=== PATIENT | female | born 1985 | race Caucasian/White ===

== ENCOUNTER → 2017-06-08 | Outpatient (CLI) | payer OTHER ==
--- NOTE | 2017-06-08 13:58 | MM ---
Reason for exam: clinical finding. History: Family history of breast cancer in 2 maternal aunts at age 60. Indicated problem(s): lump or thickening in the right breast. Physical Findings: Nurse did not find any significant physical abnormalities on exam. MG 3D Diag Mammo W/Cad RINAA Bilateral CC and MLO view(s) were taken. There are scattered fibroglandular densities. There is no discrete abnormality. These results were verbally communicated with the patient and result sheet given to the patient on 06/08/17. ASSESSMENT: Negative, BI-RAD 1 RECOMMENDATION: Clinical management of both breasts. Manage patient on a clinical basis.
== END | disposition home or self-care (01) ==
LOC: RADMAMWWP 12:50
PROVIDERS: ATTEND Internal Medicine
DX: N60.01 Solitary cyst of right breast (principal)
CPT/HCPCS: 77066; G0279

== ENCOUNTER → 2019-07-24 | Outpatient (CLI) | payer OTHER ==
--- NOTE | 2019-07-24 16:06 | US ---
EXAMINATION TYPE: US pelvis complete transvag DATE OF EXAM: 07/24/2019 COMPARISON: NONE CLINICAL HISTORY: N92.1 Excessive and frequent menstruation with irr. Irregular menses TECHNIQUE: Transvaginal (TV) and Transabdominal (TA) . Transabdominal sonographic images of the pel vis were acquired. Transvaginal sonographic images were medically necessary to better assess the fol lowing anatomy: Ovary, endometrium Date of LMP: 07/04/2019, EXAM MEASUREMENTS: Uterus: 8.5 x 5.4 x 4.7 cm Endometrial Stripe: 1.2 cm Right Ovary: 3.3 x 2.1 x 2.5 cm Left Ovary: 2.9 x 1.4 x 2.0 cm 1. Uterus: Anteverted wnl 2. Endometrium: wnl 3. Right Ovary: Complex lesion with peripheral vascular flow = 2.0 x 2.0 x 1.7 cm 4. Left Ovary: follicles seen 5. Bilateral Adnexa: Fluid filled peristalsing bowel 6. Posterior cul-de-sac: free fluid Cervix- Nabothian cysts IMPRESSION: 1. Complex right ovarian lesion measuring 2.0 cm most likely represents an involuting hemorrhagic cys t. Follow-up pelvic ultrasound could be considered and 3 menstrual cycles to ensure resolution. 2. Endometrial thickness is within normal limits in this patient with irregular menstruation. 3. Small amount of free fluid in the bilateral adnexa and posterior cul-de-sac, likely physiologic in nature.
== END | disposition home or self-care (01) ==
LOC: RADUSWWP 15:15
PROVIDERS: ATTEND Internal Medicine
DX: N83.8 Other noninflammatory disorders of ovary, fallopian tube and broad ligament (principal)
CPT/HCPCS: 76830; 76856

== ENCOUNTER → 2019-10-27 | Outpatient (CLI) | payer OTHER ==
--- NOTE | 2019-10-27 10:23 | US ---
EXAMINATION TYPE: US pelvic complete DATE OF EXAM: 10/27/2019 COMPARISON: CLINICAL HISTORY: N83.0 Follicular cyst of ovary. Follow up previous ovarian cyst TECHNIQUE: Transabdominal (TA). Transabdominal sonographic images of the pelvis were acquired. Date of LMP: 10/21/2019, EXAM MEASUREMENTS: Uterus: 9.3 x 5.3 x 4.4 cm Endometrial Stripe: 0.4 cm Right Ovary: 3.2 x 2.1 x 1.8 cm Left Ovary: 2.9 x 1.5 x 1.9 cm 1. Uterus: Anteverted wnl 2. Endometrium: wnl 3. Right Ovary: Follicles seen 4. Left Ovary: Follicles seen 5. Bilateral Adnexa: wnl 6. Posterior cul-de-sac: no free fluid IMPRESSION: Involution of the previously seen complex right ovarian 2.0 cm cysts suggesting an involu margo hemorrhagic cyst. Endometrial thickness remains within normal limits.
== END | disposition home or self-care (01) ==
LOC: RADUSWWP 09:31
PROVIDERS: ATTEND Obstetrics & Gynecology
DX: N83.201 Unspecified ovarian cyst, right side (principal)
CPT/HCPCS: 76856